=== PATIENT | male | born 1950 | race Caucasian/White ===

== ENCOUNTER → 2017-04-06 | Outpatient (CLI) | payer BC, OTHER ==
[~2017-04-06] MED LIST: FLEXERIL PO; HYDROCODON-ACE1 EAC7 PO; MULTIVITAMINS1 EAC7 PO; NEURONTIN 300300 M1 PO; NORCO 10-325 T1 EACH PO; RELAFEN750 MG PO
== END ==
LOC: MRI 09:02 → EDSTATUS 09:31 → MRI 11:16
DX: M51.36 Other intervertebral disc degeneration, lumbar region (principal)

== ENCOUNTER → 2020-08-29 | Outpatient (CLI) | payer OTHER | LOC: CAT 09:43 | PROVIDERS: ATTEND Neuromusculoskeletal Medicine & OMM | DX: Z13.6 Encounter for screening for cardiovascular disorders (principal); I25.10 Atherosclerotic heart disease of native coronary artery without angina pectoris; E78.00 Pure hypercholesterolemia, unspecified ==

== ENCOUNTER → 2020-09-21 | Outpatient (CLI) | payer BC | LOC: SJCVCIMAG 08:31 | PROVIDERS: ATTEND Internal Medicine | DX: I08.8 Other rheumatic multiple valve diseases (principal); I11.9 Hypertensive heart disease without heart failure ==